=== PATIENT | male | born 1970 | race African-American/Black ===

== ENCOUNTER → 2018-03-25 08:34 | Outpatient (CLI) | payer MEDICARE, SELFPAY ==
--- NOTE | 2018-03-25 08:41 | AVDS_ITS ---
Reason For Study: complications of renal device RIGHT Inflow 173 cm/s. Prox Anast 415 cm/s. Prox Graft 736 cm/s. Mid Graft 390 cm/s. Dist Graft 265 cm/s. Outflow upper arm 137 cm/s. Interpretation Summary 1. Patent AVF. 3.3 mm proximal fistula. Ordering Physician: Bandar Soni Performed By: Johnathan Leahy RVT
== END ==
PROVIDERS: Family Provider Family Medicine; PCP Family Medicine; Visit Provider Surgery Vascular Surgery
DX: T82.858A Stenosis of other vascular prosthetic devices, implants and grafts, initial encounter (principal); N18.6 End stage renal disease
CPT/HCPCS: 93990

== ENCOUNTER 2018-04-11 11:42 | Emergency (ER) | payer MEDICARE, SELFPAY ==
--- NOTE | 2018-04-11 11:42 | DT_ITS ---
This patient was seen during an EMR downtime April 07, 2018 - April 14, 2018. This patient may have a combination of paper and electronic documentation or all paper documentation. All documentation is viewable within the e-chart portion of [facility] for each patient visit.
--- NOTE | 2018-04-11 11:45 | CT_ITS ---
STUDY: CT BRAIN WITHOUT CONTRAST REASON FOR EXAM: Male, 47 years old. HTN, KAUR RADIATION DOSAGE (If Supplied By Facility): CTDIvol = ( 44.99 ) mGy, DLP = ( 745.49 ) mGycm TECHNIQUE: Transaxial CT imaging of the brain was performed without administration of intravenous contrast material. Individualized dose optimization techniques were used for this CT. COMPARISON: None. FINDINGS: Normal soft tissue structures. Normal calvarium. Normal size ventricles and extra-axial spaces for the patient's age. There is agenesis of the corpus callosum. There is decrease attenuation lesion in the cingulate gyrus suggesting an old infarction in the left anterior cerebral artery territory. Normal basal ganglia and thalami. Normal brainstem. Normal cerebellum. There is no intracranial hemorrhage. There are no findings of an acute ischemic infarction. Normal visualized paranasal sinuses. CT/Brain/Head without Contrast IMPRESSION: Patient is on the corpus callosum. 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 Electronically Signed: Angie Yancey MD at 6:40 EDT Tel , Service support ,
== END 2018-04-11 12:30 | disposition home or self-care (01) ==
LOC: ED 13:20
PROVIDERS: Emergency Provider Emergency Medicine; Family Provider Family Medicine; PCP Family Medicine
DX: R51 Headache (principal); I12.0 Hypertensive chronic kidney disease with stage 5 chronic kidney disease or end stage renal disease; N18.6 End stage renal disease; Z99.2 Dependence on renal dialysis; Z79.82 Long term (current) use of aspirin; Z79.899 Other long term (current) drug therapy
CPT/HCPCS: 70450; 99285

== ENCOUNTER → 2020-01-06 13:55 | Outpatient (CLI) | payer MEDICARE, MEDICAID, SELFPAY ==
--- NOTE | 2020-01-06 14:02 | CT_ITS ---
STUDY: CT BRAIN WITHOUT CONTRAST REASON FOR EXAM: Male, 49 years old. Headaches RADIATION DOSAGE (If Supplied By Facility): CTDIvol = ( 44.99 ) mGy, DLP = ( 745.49 ) mGycm TECHNIQUE: Transaxial CT imaging of the brain was performed without administration of intravenous contrast material. Individualized dose optimization techniques were used for this CT. COMPARISON: 04/11/2018 FINDINGS: Again noted is agenesis of the corpus callosum. There is a stable old left frontal infarct. There is no acute bleed or infarct. There are normal white matter tracts. There is no hydrocephalus. The visualized paranasal sinuses are clear. The mastoid air cells are well aerated. There is no skull fracture. CT/Brain/Head without Contrast IMPRESSION: No acute intracranial abnormality. 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 Stable agenesis of the corpus callosum. Electronically Signed: Trevor Freedman, at 15:19 EST Tel , Service support ,
== END ==
PROVIDERS: PCP Student in an Organized Health Care Education/Training Program; Referring Provider Ophthalmology; Visit Provider Ophthalmology
DX: R51 Headache (principal)
CPT/HCPCS: 70450